=== PATIENT | male | born 1960 | race Caucasian/White ===

== ENCOUNTER 2016-09-23 14:38 | Inpatient (IN) | payer MEDICARE, OTHER ==
[~2016-09-23] VITALS: Ht 188 cm; Wt 157.8 kg
[2016-09-23 15:31] LABS: RED BLOOD COUNT 4.46 M/UL (4.20-5.50); WHITE BLOOD COUNT 12.7 K/UL (4.5-11.0)
[2016-09-23] MEDS ORDERED: GLUCOPHAGE1000 MG PO (23:27)
[2016-09-23] MEDS ORDERED: NORVASC 5 MG TAB5 MG PO (23:28)
[2016-09-23] MEDS ORDERED: LOSARTAN-HCTZ1 EAC2 PO (23:29)
[2016-09-23] MEDS ORDERED: LANTUS100 UNIT/1 SQ (23:31)
[2016-09-23] MEDS ORDERED: NOVOLOG FL100 UNIT/1 SQ (23:32)
[2016-09-24 00:42] LABS: HEMOGLOBIN 12.3 gm/dl (14.0-17.5); RED BLOOD COUNT 4.17 M/UL (4.20-5.50)
[2016-09-24 04:03] LABS: RED BLOOD COUNT 4.09 M/UL (4.20-5.50)
[2016-09-24 04:06] LABS: WHITE BLOOD COUNT 19.6 K/UL (4.5-11.0)
[2016-09-25 03:33] LABS: HEMOGLOBIN 11.6 gm/dl (14.0-17.5); RED BLOOD COUNT 3.99 M/UL (4.20-5.50); WHITE BLOOD COUNT 19.6 K/UL (4.5-11.0)
== END 2016-09-25 18:26 | disposition short-term general hospital (02) | DRG 208 ==
LOC: ER1 14:38 → ZEROF 18:00 → CCU 09-24 00:27
PROVIDERS: Anesthesiology; Emergency Medicine; ADMIT Internal Medicine
PROC: 0WH Anatomical Regions, General, Insertion (ICD-10-PCS; principal; 2016-09-23 22:07)
PROC: 5A1945Z Respiratory Ventilation, 24-96 Consecutive Hours (ICD-10-PCS; principal; 2016-09-23 22:07)
DX: J96.00 Acute respiratory failure, unspecified whether with hypoxia or hypercapnia (principal); J05.11 Acute epiglottitis with obstruction; E87.2 Acidosis; E66.2 Morbid (severe) obesity with alveolar hypoventilation; N17.9 Acute kidney failure, unspecified; J98.11 Atelectasis; Z68.41 Body mass index [BMI] 40.0-44.9, adult; I48.91 Unspecified atrial fibrillation; E11.65 Type 2 diabetes mellitus with hyperglycemia; Z57.4 Occupational exposure to toxic agents in agriculture; Y92.009 Unspecified place in unspecified non-institutional (private) residence as the place of occurrence of the external cause; Z78.1 Physical restraint status; Z98.890 Other specified postprocedural states; E11.621 Type 2 diabetes mellitus with foot ulcer; L97.519 Non-pressure chronic ulcer of other part of right foot with unspecified severity; L97.529 Non-pressure chronic ulcer of other part of left foot with unspecified severity; I12.9 Hypertensive chronic kidney disease with stage 1 through stage 4 chronic kidney disease, or unspecified chronic kidney disease; Y93.89 Activity, other specified; E11.22 Type 2 diabetes mellitus with diabetic chronic kidney disease; N18.9 Chronic kidney disease, unspecified; Z77.22 Contact with and (suspected) exposure to environmental tobacco smoke (acute) (chronic); E78.5 Hyperlipidemia, unspecified; K02.9 Dental caries, unspecified; Z88.1 Allergy status to other antibiotic agents; Z79.4 Long term (current) use of insulin; Z79.84 Long term (current) use of oral hypoglycemic drugs; Z90.49 Acquired absence of other specified parts of digestive tract; Z96.641 Presence of right artificial hip joint; Z96.1 Presence of intraocular lens; Z82.49 Family history of ischemic heart disease and other diseases of the circulatory system; Z83.3 Family history of diabetes mellitus
CPT/HCPCS: ECHO; 36415; 36600; 70491; 71010; 80048; 80053; 82550; 82553; 82803; 82962; 83874; 83880; 84439; 84443; 84484; 85025; 85027; 85379; 85610; 85730; 87040; 93005; 93306; 94002; 94003; 94640; 94664; 96372; 96374; 96375; 99291; J0171; J1100; J1200; J1644; J1815; J2250; J2543; J2920; J2930; J7030; J7040; J7050; J7120; Q9963